=== PATIENT | male | born 1965 | race Caucasian/White ===

== ENCOUNTER → 2016-05-07 | Outpatient (CLI) | payer OTHER ==
[~2016-05-07] MED LIST: /ESCI10TA OR; ACET65TA OR; ASTAPRO; CEPH500T OR; CLIN300C OR; FLON0.05; LISI5TAB OR; Nucynta OR; OCEAN; PRED1TA OR; ROSU10TA OR; VICO5TAB OR
[2016-05-07 09:28] LABS: BASO # 0.1 K/mm3 (0.0-0.2); BASO % 0.8 % (0.0-1.0); EOS # 0.2 K/mm3 (0.0-0.50); EOS % 3.1 % (0.0-3.0); LARGE UNSTAINED CELL # 0.1 K/mm3 (0.0-0.4); LARGE UNSTAINED CELL % 1.7 % (0.0-4.0); LYMPH # 2.4 K/mm3 (1.5-4.5); LYMPH % 29.8 % (24.0-44.0); MEAN CORPUSCULAR HEMOGLOBIN 30.6 pg (27.0-33.0); MEAN CORPUSCULAR HGB CONC 34.1 g/dl (32.0-36.5); MEAN CORPUSCULAR VOLUME 89.6 fl (80.0-96.0); MONO # 0.4 K/mm3 (0.0-0.8); MONO % 5.4 % (0.0-5.0); NEUTROPHILS # 4.8 K/mm3 (1.8-7.7); NEUTROPHILS % 59.2 % (36.0-66.0); PLATELET COUNT, AUTOMATED 272 k/mm3 (150-450); RED CELL DISTRIBUTION WIDTH 12.3 % (11.5-14.5); WHITE BLOOD COUNT 8.1 K/mm3 (4.0-10.0)
[2016-05-07 10:02] LABS: ALBUMIN 3.9 GM/DL (3.2-5.2); ALKALINE PHOSPHATASE 87 U/L (45-117); ALT/SGPT 80 U/L (12-78); AST/SGOT 35 U/L (15-37); BILIRUBIN,DIRECT < 0.1 MG/DL (0.0-0.2); BILIRUBIN,TOTAL 0.4 MG/DL (0.2-1.0); TOTAL PROTEIN 6.9 GM/DL (6.4-8.2)
[2016-05-08 14:36] LABS: PSA TOTAL 11.7 ng/mL (0.0-4.0)
== END ==
LOC: M WUC 08:23
PROVIDERS: ATTEND Nurse Practitioner
DX: N40.0 Benign prostatic hyperplasia without lower urinary tract symptoms (principal)

== ENCOUNTER → 2016-07-21 | Outpatient (CLI) | payer OTHER ==
[2016-07-21 11:46] LABS: INR 0.96
[2016-07-21 12:14] LABS: HEPATITIS B SURFACE ANTIBODY NEGATIVE (POSITIVE)
--- NOTE | 2016-07-21 13:16 | REP ---
MRI LIVER WITH AND WITHOUT CONTRAST: TECHNIQUE: Multiple sequences obtained pre- and post administration of 20 mL IV gadolinium. Subcentimeter nodule is seen in the dome of the liver posteriorly in the right lobe, which is hyperintense. Similar nodule is seen in the left lobe a little more inferiorly. Another similar-appearing nodule is seen at the inferior tip of the right lobe of the liver. None of these nodules enhance, consistent with cysts. No suspicious enhancing nodule is seen in the liver. Visualized portions of spleen, adrenals, pancreas, and kidneys appear unremarkable. No adenopathy or free fluid is seen in the visualized abdomen. IMPRESSION: Three small cysts identified in the liver without suspicious mass or adenopathy. Signed by Matthew Diaz MD 07/21/2016 05:12 P
[2016-07-21 20:26] LABS: ALBUMIN 4.2 GM/DL (3.2-5.2); ALBUMIN/GLOBULIN RATIO 1.35 (1.00-1.93); ALKALINE PHOSPHATASE 97 U/L (45-117); ALT/SGPT 77 U/L (12-78); AST/SGOT 34 U/L (15-37); BILIRUBIN,DIRECT 0.1 MG/DL (0.0-0.2); BILIRUBIN,TOTAL 0.3 MG/DL (0.2-1.0); FERRITIN 410 NG/ML (26-388); GAMMA GLUTAMYLTRANSPEPTIDASE 69 U/L (15-85); IMMUNOGLOBULIN G 811 MG/DL (681-1648); IMMUNOGLOBULIN M 87.3 MG/DL (40-230); PERCENT SATURATION 38.3 % (19.7-37.4); TOTAL IRON BINDING CAPACITY 295 UG/DL (250-450); TOTAL PROTEIN 7.3 GM/DL (6.4-8.2)
[2016-07-23 14:14] LABS: ALPHA 1 ANTITRYPSIN 136 mg/dL (90-200); ENDOMYSIAL ABY IgA Negative (Negative); TISSUE TRANSGLUTAMINASE IgG <2 U/mL (0-5)
[2016-07-24 00:08] LABS: IgG SERUM (part of Subclasses) 800 mg/dL (700-1600); IgG Subclass 1 496 mg/dL (248-810); IgG Subclass 2 245 mg/dL (130-555); IgG Subclass 3 30 mg/dL (15-102); IgG Subclass 4 18 mg/dL (2-96)
== END ==
LOC: M LAB 11:05
PROVIDERS: ATTEND Internal Medicine
DX: R93.8 Abnormal findings on diagnostic imaging of other specified body structures (principal); R94.5 Abnormal results of liver function studies; F10.10 Alcohol abuse, uncomplicated; K76.89 Other specified diseases of liver

== ENCOUNTER → 2016-10-03 | Outpatient (CLI) | payer OTHER ==
[2016-10-03 09:35] LABS: BASO % 0.5 % (0.0-1.0); EOS # 0.3 K/mm3 (0.0-0.50); EOS % 3.1 % (0.0-3.0); LARGE UNSTAINED CELL # 0.2 K/mm3 (0.0-0.4); LARGE UNSTAINED CELL % 1.9 % (0.0-4.0); LYMPH # 2.4 K/mm3 (1.5-4.5); LYMPH % 27.2 % (24.0-44.0); MEAN CORPUSCULAR HEMOGLOBIN 31.4 pg (27.0-33.0); MEAN CORPUSCULAR HGB CONC 35.1 g/dl (32.0-36.5); MEAN CORPUSCULAR VOLUME 89.5 fl (80.0-96.0); MONO # 0.5 K/mm3 (0.0-0.8); MONO % 6.3 % (0.0-5.0); NEUTROPHILS % 61.1 % (36.0-66.0); PLATELET COUNT, AUTOMATED 278 k/mm3 (150-450); RED CELL DISTRIBUTION WIDTH 12.5 % (11.5-14.5); WHITE BLOOD COUNT 8.2 K/mm3 (4.0-10.0)
[2016-10-03 09:52] LABS: ALBUMIN 3.8 GM/DL (3.2-5.2); ALBUMIN/GLOBULIN RATIO 1.27 (1.00-1.93); BILIRUBIN,DIRECT 0.1 MG/DL (0.0-0.2); BILIRUBIN,TOTAL 0.5 MG/DL (0.2-1.0); TOTAL PROTEIN 6.8 GM/DL (6.4-8.2)
== END ==
LOC: M WUC 08:13
PROVIDERS: ATTEND Nurse Practitioner
DX: E29.1 Testicular hypofunction (principal)

== ENCOUNTER → 2016-10-13 | Outpatient (REF) | payer OTHER | LOC: M LAB REF 14:46 | PROVIDERS: ATTEND Physician Assistant | DX: J02.9 Acute pharyngitis, unspecified (principal) ==

== ENCOUNTER → 2017-01-27 | Outpatient (CLI) | payer OTHER | LOC: M RAD 07:34 | PROVIDERS: ATTEND Student in an Organized Health Care Education/Training Program | DX: R94.5 Abnormal results of liver function studies (principal) ==

== ENCOUNTER → 2017-01-29 | Outpatient (CLI) | payer OTHER ==
--- NOTE | 2017-01-30 07:06 | REP ---
LIVER ULTRASOUND: CLINICAL: Abnormal liver function tests. TECHNIQUE: Transabdominal ultrasound examination using curved array transducer. FINDINGS: The liver demonstrates fatty infiltration with areas of focal fatty sparing as well as a small complex 10.9 mm cyst in the right lobe. No further hepatic lesions are identified. The pancreas is incompletely evaluated due to interposed bowel gas but the visualized portions appear normal. The gallbladder is unremarkable and without gallstones, wall thickening, or pericholecystic fluid. No biliary ductal dilatation is appreciated and the common bile duct measures 1.8 mm diameter. The right kidney is normal in reniform shape without hydronephrosis and measures 11.8 x 7.5 x 5.7 cm. No ascites in the visualized right upper quadrant. IMPRESSION: 1. Fatty infiltration to the liver with areas of focal fatty sparing as well as 10.9 mm complex septated right lobe cyst. Signed by Wilfredo Bradley MD 01/31/2017 08:44 A
== END ==
LOC: M RAD 08:43
PROVIDERS: ATTEND Student in an Organized Health Care Education/Training Program
DX: R94.5 Abnormal results of liver function studies (principal); K76.0 Fatty (change of) liver, not elsewhere classified

== ENCOUNTER → 2017-02-18 | Outpatient (CLI) | payer OTHER ==
[2017-02-18 13:46] LABS: BASO # 0.1 10^3/uL (0.0-0.2); BASO % 0.9 % (0.0-1.0); EOS # 0.3 10^3/uL (0.0-0.50); EOS % 3.5 % (0.0-3.0); HEMATOCRIT 46.6 % (42.0-52.0); HEMOGLOBIN 15.8 g/dl (14.0-18.0); IMMATURE GRANULOCYTE % 0.4 % (0-0); LYMPH # 2.5 10^3/uL (1.5-4.5); LYMPH % 31.6 % (24.0-44.0); MEAN CORPUSCULAR HEMOGLOBIN 30.3 pg (27.0-33.0); MEAN CORPUSCULAR HGB CONC 33.9 g/dl (32.0-36.5); MEAN CORPUSCULAR VOLUME 89.4 fl (80.0-96.0); MONO # 0.6 10^3/uL (0.0-0.8); MONO % 7.7 % (0.0-5.0); NEUTROPHILS # 4.4 10^3/uL (1.8-7.7); NEUTROPHILS % 55.9 % (36.0-66.0); PLATELET COUNT, AUTOMATED 297 10^3/uL (150-450); RED BLOOD COUNT 5.21 10^6/uL (4.30-6.10); WHITE BLOOD COUNT 7.8 10^3/uL (4.0-10.0)
[2017-02-18 13:55] LABS: ALBUMIN/GLOBULIN RATIO 1.38 (1.00-1.93); ALKALINE PHOSPHATASE 92 U/L (45-117); ALT/SGPT 63 U/L (12-78); AST/SGOT 29 U/L (7-37); BILIRUBIN,DIRECT 0.1 MG/DL (0.0-0.2); BILIRUBIN,TOTAL 0.4 MG/DL (0.2-1.0); PROSTATIC SPECIFIC AG MONITOR 9.07 NG/ML (< 4.0); TOTAL PROTEIN 6.9 GM/DL (6.4-8.2)
[2017-02-18 14:36] LABS: TESTOSTERONE 246 NG/DL (241-827)
== END ==
LOC: M WUC 08:38
DX: N40.0 Benign prostatic hyperplasia without lower urinary tract symptoms (principal)

== ENCOUNTER → 2017-03-27 | Outpatient (CLI) | payer OTHER ==
[2017-03-27 09:54] LABS: TESTOSTERONE 241 NG/DL (241-827)
== END ==
LOC: M WUC 08:14
DX: E29.1 Testicular hypofunction (principal)
CPT/HCPCS: 84403

== ENCOUNTER → 2017-06-23 | Outpatient (CLI) | payer OTHER ==
[2017-06-23 17:14] LABS: ANION GAP 4 MEQ/L (8-16); BLOOD UREA NITROGEN 17 MG/DL (7-18); CALCIUM LEVEL 9.2 MG/DL (8.5-10.1); CARBON DIOXIDE LEVEL 30 MEQ/L (21-32); CHLORIDE LEVEL 106 MEQ/L (98-107); CREATININE FOR GFR 1.17 MG/DL (0.70-1.30); GLOMERULAR FILTRATION RATE > 60.0 (>56); GLUCOSE, FASTING 78 MG/DL (70-100); POTASSIUM SERUM 4.4 MEQ/L (3.5-5.1); SODIUM LEVEL 140 MEQ/L (136-145)
[2017-06-23 18:00] LABS: BASO # 0.1 10^3/uL (0.0-0.2); BASO % 0.6 % (0.0-1.0); EOS # 0.3 10^3/uL (0.0-0.50); EOS % 2.7 % (0.0-3.0); HEMATOCRIT 45.7 % (42.0-52.0); HEMOGLOBIN 15.7 g/dl (13.5-17.5); IMMATURE GRANULOCYTE % 0.4 % (0-3.0); LYMPH # 2.6 10^3/uL (1.5-4.5); LYMPH % 25.7 % (24.0-44.0); MEAN CORPUSCULAR HEMOGLOBIN 30.6 pg (27.0-33.0); MEAN CORPUSCULAR HGB CONC 34.4 g/dl (32.0-36.5); MEAN CORPUSCULAR VOLUME 89.1 fl (80.0-96.0); MONO # 0.8 10^3/uL (0.0-0.8); MONO % 8.1 % (0.0-5.0); NEUTROPHILS # 6.3 10^3/uL (1.8-7.7); NEUTROPHILS % 62.5 % (36.0-66.0); PLATELET COUNT, AUTOMATED 309 10^3/uL (150-450); RED BLOOD COUNT 5.13 10^6/uL (4.30-6.10); RED CELL DISTRIBUTION WIDTH 12.5 % (11.5-14.5); WHITE BLOOD COUNT 10.1 10^3/uL (4.0-10.0)
== END ==
LOC: M WUC 15:20
DX: R97.20 Elevated prostate specific antigen [PSA] (principal)
CPT/HCPCS: 80048

== ENCOUNTER 2017-09-07 10:29 | Day surgery (SDC) | payer OTHER ==
[2017-09-07] MEDS: NS 1,000 ML IV (10:45)
[2017-09-07] MEDS ORDERED: PROPOFOL 500 MG/50 ML VIAL As Ordered (12:49)
== END 2017-09-07 13:14 | disposition home or self-care (01) ==
LOC: M OPP 10:29
DX: Z12.11 Encounter for screening for malignant neoplasm of colon (principal); I10 Essential (primary) hypertension; E78.5 Hyperlipidemia, unspecified; F41.9 Anxiety disorder, unspecified; R06.83 Snoring; G47.30 Sleep apnea, unspecified; R97.20 Elevated prostate specific antigen [PSA]; Z91.048 Other nonmedicinal substance allergy status; Z79.899 Other long term (current) drug therapy; Z79.52 Long term (current) use of systemic steroids; Z87.891 Personal history of nicotine dependence
CPT/HCPCS: 45378

== ENCOUNTER → 2017-11-12 | Outpatient (CLI) | payer OTHER ==
[2017-11-12 18:25] LABS: PROSTATIC SPECIFIC AG MONITOR 1.96 NG/ML (< 4.0)
== END ==
LOC: M WUC 13:37
DX: R97.20 Elevated prostate specific antigen [PSA] (principal); N42.32 Atypical small acinar proliferation of prostate
CPT/HCPCS: 84153

== ENCOUNTER → 2018-01-28 | Outpatient (CLI) | payer OTHER ==
[~2018-01-28] MED LIST changes: +AZEL0.1S; +FISH7.5C PO; +FLON1SPR; +LOSA-4 PO; +OLIV250C PO; -ROSU10TA OR; +ROSU10TA PO; +WELL100T2 PO
--- NOTE | 2018-01-29 03:41 | REP ---
Clinical: Follow up hepatic cyst. Comparison: 01/29/2017. Technique: Real time hou scale ultrasound examination using curved array transducer. Findings: The liver demonstrates diffuse increased echotexture consistent with fatty infiltration and areas of focal fatty sparing. Septated cyst in the inferior tip of the right lobe measures 1.2 x 0.7 x 0.9 cm is essentially unchanged, and a new 4 mm cyst is also identified in the anterior right lobe. Pancreas is incompletely evaluated due to interposed bowel gas. The gallbladder and biliary system are normal. No gallstones, wall thickening, or pericholecystic fluid is appreciated. No biliary ductal dilatation identified. Common bile duct measures 3.8 mm diameter. Right kidney demonstrates renovascular calcifications and measures 12.1 x 7.3 x 5.7 cm. No hydronephrosis or obvious abnormality. No ascites. Impression: 1. Septated cyst in the inferior tip of the right hepatic lobe is essentially unchanged. New 4 mm hepatic cyst identified. 2. Fatty infiltration to the liver. Electronically Signed by Wilfredo Bradley MD 01/29/2018 03:33 A
== END ==
LOC: M RAD 07:22
PROVIDERS: ATTEND Student in an Organized Health Care Education/Training Program
DX: K76.89 Other specified diseases of liver (principal); K76.0 Fatty (change of) liver, not elsewhere classified; R94.5 Abnormal results of liver function studies

== ENCOUNTER → 2018-05-19 | Outpatient (CLI) | payer OTHER ==
[~2018-05-19] MED LIST changes: -/ESCI10TA OR; +CRES10TA32 PO; +LEXA1TAB OR; -LOSA-4 PO; +LOSA100T50 PO; -ROSU10TA PO
== END ==
LOC: M WUC 08:31
PROVIDERS: ATTEND Nurse Practitioner
DX: N42.32 Atypical small acinar proliferation of prostate (principal)

== ENCOUNTER → 2018-07-13 | Outpatient (CLI) | payer OTHER ==
[2018-07-13 13:25] LABS: BLOOD UREA NITROGEN 14 MG/DL (7-18); CREATININE FOR GFR 1.15 MG/DL (0.70-1.30); GLOMERULAR FILTRATION RATE > 60.0 (>56)
== END ==
LOC: M WUC 09:27
PROVIDERS: ATTEND Nurse Practitioner
DX: N42.32 Atypical small acinar proliferation of prostate (principal)

== ENCOUNTER → 2018-10-01 | Outpatient (CLI) | payer OTHER ==
--- NOTE | 2018-10-01 14:06 | REP ---
REASON: Back pain. COMPARISON: None. There is anterior lipping at every level. There is partial syndesmophyte formation seen bilaterally at every level, but heaviest along the right side of spine. The pedicles are intact bilaterally. There is minimal disc space narrowing seen involving the mid thoracic levels. Vertebral body height and alignment is within normal limits. IMPRESSION: Chronic changes as described above. Electronically Signed by Freddy Santoro DO 10/01/2018 02:22 P
== END ==
LOC: M WUC 11:38
PROVIDERS: ATTEND Internal Medicine
DX: M25.78 Osteophyte, vertebrae (principal)

== ENCOUNTER → 2018-12-13 | Outpatient (CLI) | payer OTHER ==
[2018-12-15 14:18] LABS: PSA TOTAL 3.2 ng/mL (0.0-4.0)
== END ==
LOC: M WUC 12:48
DX: N42.32 Atypical small acinar proliferation of prostate (principal)

== ENCOUNTER → 2019-02-11 | Outpatient (CLI) | payer OTHER ==
--- NOTE | 2019-02-11 09:07 | REP ---
Chest x-ray: Two views. History: Shortness of breath. Comparison study: September 08 1029. Findings: The lungs are symmetrically aerated and clear. The pleural angles are sharp. Cardiomediastinal silhouette is unremarkable. Pulmonary vasculature is not increased. There are degenerative disc disease changes in the thoracic spine. No acute bony abnormality is appreciated. Impression: No active disease. Electronically Signed by Doroteo Peck MD 02/11/2019 08:59 A
== END ==
LOC: M WUC 08:46
PROVIDERS: ATTEND Physician Assistant
DX: R06.02 Shortness of breath (principal)

== ENCOUNTER → 2019-02-21 | Outpatient (REF) | payer OTHER | LOC: M LAB REF 11:53 | PROVIDERS: ATTEND Physician Assistant | DX: R05 Cough (principal) ==

== ENCOUNTER → 2019-02-22 | Outpatient (CLI) | payer OTHER ==
--- NOTE | 2019-02-23 03:24 | REP ---
Clinical: Cough and shortness of breath . Comparison: 02/11/2019 . Technique: PA and lateral. Findings: The mediastinum and cardiac silhouette are normal. The lung montiel are clear and without acute consolidation, effusion, or pneumothorax. The skeletal structures are intact and normal. Impression: 1. No acute cardiopulmonary process. Electronically Signed by Wilfredo Bradley MD 02/23/2019 03:15 A
== END ==
LOC: M WUC 13:47
PROVIDERS: ATTEND Physician Assistant
DX: R05 Cough (principal); R06.02 Shortness of breath

== ENCOUNTER → 2019-05-11 | Outpatient (CLI) | payer OTHER | LOC: M WUC 11:29 | PROVIDERS: ATTEND Urology | DX: N42.32 Atypical small acinar proliferation of prostate (principal) ==

== ENCOUNTER 2019-12-09 13:34 | Emergency (ER) | payer OTHER ==
[~2019-12-09] VITALS: Ht 180.3 cm; Wt 100.0 kg
[~2019-12-09 13:34] MED LIST changes: -AZEL0.1S; +AZEL0.1S NARES; -FLON1SPR; +FLON1SPR NARES
[2019-12-09] MEDS ORDERED: NS 1,000 ML IV ONE (14:15)
[2019-12-09] MEDS ORDERED: IBUPROFEN 600MG TAB PO ONE (14:15)
[2019-12-09] MEDS ORDERED: ALBUTEROL 90 MCG/ACT 8GM HFA INHALER INH ONE (14:30)
[2019-12-09 14:47] LABS: VENOUS BASE EXCESS 1.8 (-2.0-2.0); VENOUS HCO3 29.6 MEQ/L (23.0-27.0); VENOUS O2 SATURATION 59.4 % (60.0-80.0); VENOUS PARTIAL PRESSURE CO2 58.4 mmHg (38.0-50.0); VENOUS PARTIAL PRESSURE O2 32.4 mmHg (30.0-50.0); VENOUS PH 7.323 UNITS (7.330-7.430); VENOUS TOTAL CO2 31.4 MEQ/L (24.0-28.0)
[2019-12-09 14:53] LABS: HEMATOCRIT 47.5 % (42.0-52.0); HEMOGLOBIN 15.6 g/dl (13.5-17.5); MEAN CORPUSCULAR HEMOGLOBIN 29.9 pg (27.0-33.0); MEAN CORPUSCULAR HGB CONC 32.8 g/dl (32.0-36.5); MEAN CORPUSCULAR VOLUME 91.2 fl (80.0-96.0); PLATELET COUNT, AUTOMATED 208 10^3/uL (150-450); RED BLOOD COUNT 5.21 10^6/uL (4.30-6.10); WHITE BLOOD COUNT 5.8 10^3/uL (4.0-10.0)
--- NOTE | 2019-12-09 15:04 | REP ---
INDICATION: sob covid +. COMPARISON: Comparison chest x-ray 22 February 2019.. TECHNIQUE: Portable sitting AP view. FINDINGS: There is a new peripheral infiltrate in the left inferior lung zone. Lung montiel are otherwise clear. Pleural angles are sharp. Heart size is normal. Pulmonary vasculature is not increased. No bony abnormality is seen. IMPRESSION: Peripheral infiltrate in the left lung base laterally. Consistent with pneumonia. Otherwise negative chest x-ray. <Electronically signed by Kyree Peck > 12/09/19 1500
[2019-12-09 15:15] LABS: BLOOD UREA NITROGEN 15 MG/DL (7-18); CALCIUM LEVEL 8.7 MG/DL (8.5-10.1); CARBON DIOXIDE LEVEL 31 MEQ/L (21-32); CHLORIDE LEVEL 105 MEQ/L (98-107); CREATININE FOR GFR 1.23 MG/DL (0.70-1.30); GLOMERULAR FILTRATION RATE > 60.0 (>56); GLUCOSE, FASTING 79 MG/DL (70-100); POTASSIUM SERUM 4.5 MEQ/L (3.5-5.1); SODIUM LEVEL 140 MEQ/L (136-145)
[2019-12-09] MEDS ORDERED: PROAAER10 INH (15:37)
[2019-12-09 16:19] VITALS: BP 148/79
--- NOTE | 2019-12-09 18:21 | ED PDOC ---
Post-Departure Follow-Up cxr faxed to dr nicolasa titus for fu Vanessa Jim MD Dec 09, 2019 18:21
== END 2019-12-09 16:23 | disposition home or self-care (01) ==
LOC: M ED 13:34
DX: U07.1 COVID-19 (principal); R91.8 Other nonspecific abnormal finding of lung field; I10 Essential (primary) hypertension; E78.5 Hyperlipidemia, unspecified; Z79.899 Other long term (current) drug therapy

== ENCOUNTER 2019-12-17 12:03 | Observation (INO) | payer OTHER ==
[~2019-12-17] VITALS: Ht 180.3 cm; Wt 98.0 kg
[~2019-12-17 12:03] MED LIST changes: +PROAAER10 INH
[2019-12-17 13:24] LABS: BASO % 0.3 % (0.0-1.0); EOS # 0.1 10^3/uL (0.0-0.5); HEMATOCRIT 45.2 % (42.0-52.0); HEMOGLOBIN 14.5 g/dl (13.5-17.5); LYMPH # 1.2 10^3/uL (1.5-5.0); LYMPH % 12.9 % (24.0-44.0); MEAN CORPUSCULAR HGB CONC 32.1 g/dl (32.0-36.5); MEAN CORPUSCULAR VOLUME 90.4 fl (80.0-96.0); MONO # 0.7 10^3/uL (0.0-0.8); MONO % 8.3 % (0.0-5.0); NEUTROPHILS # 6.9 10^3/uL (1.5-8.5); NEUTROPHILS % 77.2 % (36.0-66.0); PLATELET COUNT, AUTOMATED 256 10^3/uL (150-450); WHITE BLOOD COUNT 8.9 10^3/uL (4.0-10.0)
[2019-12-17 13:41] LABS: INR 1.07; PROTHROMBIN TIME 14.1 SECONDS (12.5-14.3)
[2019-12-17 13:42] LABS: PARTIAL THROMBOPLASTIN TIME 31.3 SECONDS (24.2-38.5)
[2019-12-17 13:44] LABS: D-DIMER QUANT 1118.04 ng/ml (<500)
[2019-12-17] MEDS ORDERED: ACETAMINOPHEN 325 MG TAB PO ONE (13:45)
[2019-12-17 13:46] LABS: ALT/SGPT 33 U/L (12-78); BLOOD UREA NITROGEN 14 MG/DL (7-18); CALCIUM LEVEL 8.8 MG/DL (8.5-10.1); CARBON DIOXIDE LEVEL 28 MEQ/L (21-32); CHLORIDE LEVEL 105 MEQ/L (98-107); CREATININE FOR GFR 0.95 MG/DL (0.70-1.30); GLOMERULAR FILTRATION RATE > 60.0 (>56); GLUCOSE, FASTING 76 MG/DL (70-100); LDH LACTATE DEHYDROGENASE 347 U/L (87-241); POTASSIUM SERUM 4.4 MEQ/L (3.5-5.1); SODIUM LEVEL 138 MEQ/L (136-145)
[2019-12-17 13:47] LABS: ALBUMIN 3.2 GM/DL (3.2-5.2); BILIRUBIN,TOTAL 0.8 MG/DL (0.2-1.0); CK-MB VALUE MASS < 1.0 NG/ML (<3.6); CPK CREATINE PHOSPHOKINASE 160 U/L (39-308); FERRITIN 1122 NG/ML (26-388); MB/CK RELATIVE INDEX 0.62 (< OR =4); TOTAL PROTEIN 6.5 GM/DL (6.4-8.2); TROPONIN I < 0.02 NG/ML (< 0.10)
--- NOTE | 2019-12-17 14:38 | REP ---
INDICATION: Coronavirus workup. COMPARISON: 12/09/2019 TECHNIQUE: AP portable chest: FINDINGS: Today's study shows new peripheral infiltrates in the right lateral base and patchy peripheral infiltrates in the left lower lobe which have increased. No definite effusion. The mid and upper lung zones remain clear. The heart, mediastinal and hilar contours are normal. The airway intact and bones unremarkable. IMPRESSION: 1. Increasing patchy left base infiltrates and new peripheral consolidation in the right lateral base compared to 12/09/2019. Picture could certainly represent COVID pneumonia in this patient with a positive COVID test. Other pneumonias would have to be considered. No gross effusion or other finding. <Electronically signed by Nik Aleman > 12/17/19 [id number]
[2019-12-17] MEDS ORDERED: ROSU5TAB5 PO (15:19)
[2019-12-17] MEDS ORDERED: ALBU8.5H INH (15:40)
[2019-12-17] MEDS ORDERED: ACE65ERTAB PO (15:40)
[2019-12-17] MEDS ORDERED: AZELASTINE 137MCG NASAL SPY 30 ML (ASTELIN) PRN (16:00)
[2019-12-17] MEDS ORDERED: ALBUTEROL 90 MCG/ACT 8GM HFA INHALER INH PRN (16:00)
[2019-12-17] MEDS ORDERED: FLUTICASONE PROP 0.05% NASAL SPRAY 16 GM (FLONASE) NARES PRN (16:00)
[2019-12-17] MEDS ORDERED: BUPR-69 PO (16:19)
--- NOTE | 2019-12-17 16:35 | HPEPDOC ---
[facility] Medical History & Physical Date of Admission Dec 17, 2019 Date of Service: Dec 17, 2019 Attending Physician: EBONY AGUIRRE MD History and Physical CHIEF COMPLAINT: Shortness of breath HISTORY OF PRESENT ILLNESS: Patient is a 54 year old male who recently tested positive for COVID-19 pneumonia on 12/05/2019 who presented to the [facility] ER with complaint of worsening shortness of breath. He states that approximately 2 weeks ago he had developed a headache and cough. This progressed to worsening shortness of breath which lead him to be tested for COVID-19. Once he tested positive he was placed on quarantine at home. Patient states that he thought he was doing well but developed a worsening cough and presented to the [facility] ER on 12/09/2019. He was evaluated at the time and chest x-ray demonstrated a small left lung infiltrate but the patient was otherwise vitally stable and not hypoxic. He was discharged home from the ED. Today the patient states that he has had worsening shortness of breath and chest tightness. He states that he has some pain when coughing. He denies any chest pressure. He does admit to fever and decreased oral intake. In the ED the patient was found to be vitally stable. He was noted to be hypoxic with oxygen saturations of 90-94%. His labs did not demonstrate a leukocytosis. He did have elevation in his inflammatory markers consistent with his history of COVID-19 infection. Hospitalist service was consulted and the patient was admitted for further evaluation and management PAST MEDICAL HISTORY: 1. COVID-19 positive on 12/05/2019 2. Hypertension 3. Hyperlipidemia 4. Anxiety 5. Seasonal Allergies PAST SURGICAL HISTORY: 1. Vasectomy 2. Sinus surgery x2 3. Lasik SOCIAL HISTORY: Patient lives at home with his and kids. He denies any recent travel and has been quarantined at home. He is a former smoker and quit years ago. He drinks alcohol socially. Denies IV or illicit drug use FAMILY HISTORY: Reviewed and noncontributory ALLERGIES: Please see below. REVIEW OF SYSTEMS: CONSTITUTIONAL: Admits to fevers, chills, night-sweats and weight-loss HEENT: Admits to cough, headache. Denies difficulty swallowing or pain on swallowing CARDIOVASCULAR: Denies chest pain, pressure or palpitations RESPIRATORY: Admits to shortness of breath and chest tightness. Admits to cough. Denies sputum production GASTROINTESTINAL: Admits to diarrhea. Denies abdominal pain. GENITOURINARY: Denies dysuria, increased frequency or urgency SKIN: Denies rashes or lesions MUSCULOSKELETAL: Admits to weakness NEUROLOGICAL: Denies changes in speech or gait PSYCHIATRIC: Admits to anxiety. Denies depression ENDOCRINE: Denies heat intolerance or cold intolerance. Denies diabetes HEMATOLOGIC/LYMPHATIC: Denies easy bruising or bleeding. Denies history of DVT or PE HOME MEDICATIONS: Please see below. PHYSICAL EXAMINATION: VITAL SIGNS: Temperature 98.7, pulse 80, respiratory rate 17, blood pressure 128/68, pulse oximetry 96% on 1L GENERAL APPEARANCE: Patient is awake, alert, and oriented. He is lying in stretcher comfortably. He does not appear to be in any acute distress HEENT: Atraumatic. Normocephalic. Eyes are nonicteric. Trachea is midline CARDIOVASCULAR: Normal S1, S2. Regular rate and rhythm. No clicks rubs or murmurs LUNGS: Slightly diminished breath sounds throughout. Crackles in the left lower lung field. Symmetric chest expansion. No wheezes or rhonchi ABDOMEN: Soft, nondistended. Nontender. Normoactive bowel sounds EXTREMITIES: No edema. No calf tenderness or discoloration. Full and equal pulses in bilateral upper and lower extremities NEUROLOGICAL: No focal neurological deficits PSYCHIATRIC: Mood and affect appear appropriate for situation LABORATORY DATA: See below. IMAGING: INDICATION: Coronavirus workup. COMPARISON: 12/09/2019 TECHNIQUE: AP portable chest: FINDINGS: Today's study shows new peripheral infiltrates in the right lateral base and patchy peripheral infiltrates in the left lower lobe which have increased. No definite effusion. The mid and upper lung zones remain clear. The heart, mediastinal and hilar contours are normal. The airway intact and bones unremarkable. IMPRESSION: 1. Increasing patchy left base infiltrates and new peripheral consolidation in the right lateral base compared to 12/09/2019. Picture could certainly represent COVID pneumonia in this patient with a positive COVID test. Other pneumonias would have to be considered. No gross effusion or other finding. <Electronically signed by Nik Aleman > 12/17/19 3161 MICROBIOLOGY: Please see below. ASSESSMENT: Patient is a 54 year old male with Positive COVID-19 on 12/05/2019 who has developed worsening shortness of breath and hypoxia over the past two weeks. Patient found to be mildly hypoxic in the ER and admitted for observation . PLAN: 1. Shortness of breath 2/2 likely COVID-19 pneumonia vs bacterial pna -Patient is COVID-19 positive since 12/05/2019. He had presented to [facility] ER on 12/08 and received a chest x-ray demonstrating a left infiltrate. Today chest x- ray demonstrates increasing patchy left base infiltrate with new peripheral consolidation in the right lateral base. Findings are likely secondary to a viral pneumonia such as COVID-19 given that he does not have a leukocytosis but decreased lymphocytes. He is febrile. -Will start on empiric Rocephin and Doxy for CAP. -Procalcitonin pending. If negative will D/C antibiotics -Continue with supplemental oxygen -Incentive spirometry -Albuterol HFA prn -D-dimer was elevated; -He is not tachycardic / Saturations at the lowest have been 93% on room air -PE could be on differential however his chest x-ray provides reasoning for his hypoxia -D-dimers could be elevated 2/2 COVID -Will hold off on CTA for now -Patient will be started on 50 mg Lovenox BID 2. COVID-19 -Patient has positive COVID-19. Likely has developed pneumonia. Inflammatory markers are elevated consistent with COVID-19 -Continue with isolation precautions -Likely discharge home with oxygen in AM 3. Hypertension -Continue patients home Losartan 4. Hyperlipidemia -Continue Rosuvastatin -Continue Fish oil 5. Allergies -Continue Flonase -Continue Azelastine 6. Anxiety -Continue Wellbutrin 7. DVT Prophylaxis -Lovenox 0.5mg/kg dosing BID Disposition: - Likely discharge home in AM with oxygen pending clinical improvement Vital Signs Vital Signs Date Time Temp Pulse Resp B/P (MAP) Pulse Ox O2 Delivery O2 Flow Rate FiO2 12/17/19 14:00 90 18 159/85 (109) 93 Nasal Cannula 1.0 12/17/19 12:45 100.2 Laboratory Data Labs 24H Laboratory Tests 2 12/17/19 13:03: Immature Granulocyte % (Auto) 0.3, Neutrophils (%) (Auto) 77.2H, Lymphocytes (%) (Auto) 12.9L, Monocytes (%) (Auto) 8.3H, Eosinophils (%) (Auto) 1.0, Basophils (%) (Auto) 0.3, Neutrophils # (Auto) 6.9, Lymphocytes # (Auto) 1.2L, Monocytes # (Auto) 0.7, Eosinophils # (Auto) 0.1, Basophils # (Auto) 0.0, Nucleated Red Blood Cells % (auto) 0.0, Prothrombin Time 14.1H, Prothromb Time International Ratio 1.07, Activated Partial Thromboplast Time 31.3, D-Dimer, Quantitative 1118.04H, Anion Gap 5L, Glomerular Filtration Rate > 60.0, Lactic Acid Level 1.2, Calcium Level 8.8, Ferritin 1122H, Total Bilirubin 0.8, Aspartate Amino Transf (AST/SGOT) 24, Alanine Aminotransferase (ALT/SGPT) 33, Alkaline Phosphatase 76, Lactate Dehydrogenase 347H, Total Creatine Kinase 160, Creatine Kinase MB < 1.0, Creatine Kinase MB Relative Index 0.62, Troponin I < 0.02, C- Reactive Protein, Quantitative 13.30H, Total Protein 6.5, Albumin 3.2, Albumin/Globulin Ratio 1.0 CBC/BMP Laboratory Tests 12/17/19 13:03 Microbiology Microbiology 12/17/19 Blood Culture, Received Pending 12/17/19 Blood Culture, Received Pending Home Medications Scheduled Bupropion HCl (Bupropion HCl) 100 Mg Tablet, 100 MG PO DAILY Losartan Potassium (Losartan Potassium) 100 Mg Tab, 100 MG PO DAILY [place] Extract ([place] Extract) 250 Mg Cap, 750 MG PO DAILY [place]-3/Dha/Epa/Fish Oil (Fish Oil EC 1,000 mg Softgel) 1 Cap Cap, 1 CAP PO DAILY Rosuvastatin Calcium (Rosuvastatin Calcium) 5 Mg Tablet, 5 MG PO DAILY Scheduled PRN Acetaminophen (Acetaminophen ER) 650 Mg Tablet.er, 650 MG PO Q8H PRN for PAIN / FEVER Albuterol Sulfate (Albuterol Sulfate Hfa) 8.5 Gm Hfa.aer.ad, 2 PUFFS INH Q4H PRN for SOB/WHEEZING Azelastine HCl (Azelastine HCl) 0.1 % Spr, 1 SPRAY NARES DAILY PRN for RUNNY NOSE Fluticasone Propionate (Flonase Allergy Relief) 50 Mcg/Act Spr, 2 SPRAY NARES DAILY PRN for CONGESTION Allergies Coded Allergies: TAPE (Verified Allergy, Unknown, 08/31/17) A-FIB/CHADSVASC A-FIB History Current/History of A-Fib/PAF?: No GME ATTESTATION GME ATTESTATION My faculty preceptor for this patient encounter was physically present during the encounter and was fully available. All aspects of the patient interview, e xamination, medical decision making process, and medical care plan development were reviewed and approved by the faculty preceptor. The faculty preceptor is aware and concurs with the plan as stated in the body of this note and will attest to such by his/her cosignature. ATTENDING NOTE I, Ebony Aguirre, have independently examined this patient and performed my own physical exam, as well as reviewed the documentation and edited where necessary. I have discussed in detail with the resident / student the findings and plan of treatment as documented by the resident / student and edited their note. I agree with their findings and treatment plan and have edited their documentation. I will continue to follow the patient during this hospital stay. SONIDO IVAN DO Dec 17, 2019 16:35 EBONY AGUIRRE MD Dec 17, 2019 17:07
--- NOTE | 2019-12-17 17:06 | ECGEPIP ---
[facility] - ED Test Date: 2019-12-17 Pat Name: RIA ALVAREZ Department: Room: [place] [address] Gender: Male Morgue Technician: venu : 1965 Requested By: NÉSTOR DRISCOLL Order Number: [id number] Reading MD: Yumiko Lira Measurements Intervals [place] Rate: 91 P: 59 NH: 160 QRS: 7 QRSD: 82 T: 43 QT: 338 QTc: 416 Interpretive Statements SINUS RHYTHM NONSPECIFIC T-WAVE ABNORMALITY NO PRIOR Electronically Signed on 12-17-2019 17:06:34 EST by Yumiko Lira
[2019-12-17] MEDS: NS 1,000 ML IV SCH (17:44)
[2019-12-17] MEDS: cefTRIAXone SOD 2 GM in D5W MINI-BAG PLUS 50 ML IV SCH (17:44)
[2019-12-17] MEDS: DOXYCYCLINE HYCLATE 100 MG in D5W MINI-BAG PLUS 100 ML IV SCH (18:00)
[2019-12-17 20:00] VITALS: O2SAT 96
[2019-12-17 20:30] VITALS: BP 140/82
[2019-12-17 21:00] VITALS: O2SAT 96
[2019-12-17] MEDS: ENOXAPARIN 60MG/0.6ML SYRINGE (J1650 PER 10MG) SC SCH (21:08)
[2019-12-17] MEDS: ACETAMINOPHEN TAB 650MG DOSE (2X325MG) PO PRN (21:09)
[2019-12-17 22:00] VITALS: O2SAT 95
[2019-12-17 23:00] VITALS: O2SAT 95
[2019-12-18] VITALS (22 sets, daily range): BP systolic 125–151; BP diastolic 70–86; O2SAT 93–99
[2019-12-18] MEDS: DOXYCYCLINE HYCLATE 100 MG in D5W MINI-BAG PLUS 100 ML IV SCH (06:06)
[2019-12-18] MEDS: ACETAMINOPHEN TAB 650MG DOSE (2X325MG) PO PRN ×3 (06:16→20:28)
[2019-12-18 07:37] LABS: HEMATOCRIT 41.6 % (42.0-52.0); HEMOGLOBIN 13.3 g/dl (13.5-17.5); MEAN CORPUSCULAR HEMOGLOBIN 29.5 pg (27.0-33.0); MEAN CORPUSCULAR VOLUME 92.2 fl (80.0-96.0); PLATELET COUNT, AUTOMATED 265 10^3/uL (150-450); RED BLOOD COUNT 4.51 10^6/uL (4.30-6.10); WHITE BLOOD COUNT 7.6 10^3/uL (4.0-10.0)
[2019-12-18 08:04] LABS: ALBUMIN 2.8 GM/DL (3.2-5.2); ALT/SGPT 30 U/L (12-78); BILIRUBIN,TOTAL 0.6 MG/DL (0.2-1.0); BLOOD UREA NITROGEN 16 MG/DL (7-18); CALCIUM LEVEL 8.1 MG/DL (8.5-10.1); CARBON DIOXIDE LEVEL 28 MEQ/L (21-32); CHLORIDE LEVEL 107 MEQ/L (98-107); CREATININE FOR GFR 0.98 MG/DL (0.70-1.30); FERRITIN 1184 NG/ML (26-388); GLOMERULAR FILTRATION RATE > 60.0 (>56); GLUCOSE, FASTING 95 MG/DL (70-100); MAGNESIUM LEVEL 1.7 MG/DL (1.8-2.4); POTASSIUM SERUM 4.3 MEQ/L (3.5-5.1); SODIUM LEVEL 139 MEQ/L (136-145)
[2019-12-18] MEDS: NS 1,000 ML IV SCH ×2 (08:54→16:34)
[2019-12-18] MEDS: ROSUVASTATIN 10 MG TAB (CRESTOR) PO SCH (08:56)
[2019-12-18] MEDS: buPROPion 100 MG TAB PO SCH (08:56)
[2019-12-18] MEDS: OMEGA-3 1000MG CAPSULE PO SCH (08:56)
[2019-12-18] MEDS: ENOXAPARIN 60MG/0.6ML SYRINGE (J1650 PER 10MG) SC SCH ×2 (08:57→20:28)
[2019-12-18] MEDS: LOSARTAN 50MG TABLET PO SCH (08:58)
[2019-12-18] MEDS ORDERED: ENOXAPARIN 40MG/0.4ML SYRINGE (J1650 PER 10MG) SC SCH (09:00)
[2019-12-18] MEDS ORDERED: MAG SULF 1GM/100ML (MAG RUN) 1 GM in IV 1 EA IV ONE (10:00)
--- NOTE | 2019-12-18 14:18 | IPNPDOC ---
Text Note Date of Service The patient was seen on 12/18/19. NOTE Subjective: Patient is a 54-year-old male with a PMHx of HTN, DLP, Anxiety, HAVEN on CPAP, Seasonal allergies, and a recent diagnosis of COVID-19 on 12/04 who presented to the ER with complaints of shortness of breath. Patient reports that since his positive diagnosis he has been quarantining at home Patient had tested for COVID-19 after he had experienced headache and cough while at home. He had visited the ER on 12/08; his CXR had revealed a small L infiltrate and discharge from the ER. On arrival to ED 12/16, he was hemodynamically stable and was thought to be hypoxic by the ED with saturations of 90-94% and hospitalist service was called for further evaluation. Patient was seen and examined at the bedside. Patient is currently off of oxygen and saturating 96% on room air. He still reports a significant cough. Denies any chest pain or palpitations. Reports a mild headache. Denies nausea, vomiting, abdominal pain, has not experience a bowel movement. Denies any urinary discomfort. Objective: Vitals (See below) General: Lying in bed, appears to be comfortable, AAOx3 HEENT: NC, AT CVS: RRR, +S1S2 Lungs: Fair air entry b/l, no wheezing / rhonchi / rales noted this afternoon Abdomen: Soft, non-distended, non-tender Extremities: No evidence of edema, - Calf tenderness Assessment and plan: SOB - likely 2/2 COVID-19 pneumonia; less likely 2/2 bacterial pneumonia - Presented to the ER with SOB and cough - Febrile episodes noted - Was reported to be hypoxic by the ER; currently at 96% on room air; - Off of supplemental oxygen and saturating well - saturations continue to be maintained with ambulation - Inflammatory markers remain elevated - CXR 12/16: 1. Increasing patchy left base infiltrates and new peripheral consolidation in the right lateral base compared to 12/09/2019. Picture could certainly represent COVID pneumonia in this patient with a positive COVID test. Other pneumonias would have to be considered. No gross effusion or other finding. - c/w Ceftriaxone and Doxy; will discontinue if procalcitonin is negative - c/w inhaled therapy as orderd Elevated D-dimer - less likely 2/2 PE, more likely 2/2 COVID-19 infection - Patient currently is not tachycardic - Patient is no longer hypoxic Hypertension - BP well controlled - c/w Losartan DLP - c/w Rosuvastatin and Fish oil Seasonal allergies - c/w Flonase Anxiety - c/w Bupropion DVT Prophylaxis - c/w weight based Lovenox Disposition: - Discussed with patient about plan of care - c/w Incentive spirometry - Will DC tomorrow AM VS,Fishbone, I+O VS, Fishbone, I+O Laboratory Tests 12/18/19 07:08 Vital Signs Date Time Temp Pulse Resp B/P (MAP) Pulse Ox O2 Delivery O2 Flow Rate FiO2 12/18/19 13:05 99.5 87 20 125/70 (88) 96 Room Air 12/18/19 10:00 1.0 I&O- Last 24 Hours up to 6 AM 12/18/19 06:00 Intake Total 980 ml Balance 980 ml JEAN PIERRE AGUIRRE MD Dec 18, 2019 14:18
[2019-12-18] MEDS: cefTRIAXone SOD 2 GM in D5W MINI-BAG PLUS 50 ML IV SCH (16:33)
[2019-12-18] MEDS: DOXYCYCLINE HYCLATE 100MG TABLET PO SCH (18:04)
[2019-12-19 04:22] VITALS: BP 131/69
[2019-12-19] MEDS: DOXYCYCLINE HYCLATE 100MG TABLET PO SCH (06:34)
[2019-12-19] MEDS: ACETAMINOPHEN TAB 650MG DOSE (2X325MG) PO PRN (06:34)
[2019-12-19] MEDS: NS 1,000 ML IV SCH (06:34)
[2019-12-19] MEDS: ROSUVASTATIN 10 MG TAB (CRESTOR) PO SCH (07:45)
[2019-12-19 07:48] VITALS: BP 144/95
[2019-12-19] MEDS: LOSARTAN 50MG TABLET PO SCH (07:48)
[2019-12-19] MEDS: buPROPion 100 MG TAB PO SCH (07:48)
[2019-12-19] MEDS: ENOXAPARIN 60MG/0.6ML SYRINGE (J1650 PER 10MG) SC SCH (07:48)
[2019-12-19] MEDS: OMEGA-3 1000MG CAPSULE PO SCH (07:48)
[2019-12-19 08:54] VITALS: O2SAT 95
[2019-12-19 09:48] LABS: HEMATOCRIT 39.2 % (42.0-52.0); MEAN CORPUSCULAR HGB CONC 33.2 g/dl (32.0-36.5); MEAN CORPUSCULAR VOLUME 90.3 fl (80.0-96.0); PLATELET COUNT, AUTOMATED 309 10^3/uL (150-450); RED BLOOD COUNT 4.34 10^6/uL (4.30-6.10); WHITE BLOOD COUNT 7.5 10^3/uL (4.0-10.0)
[2019-12-19 11:42] LABS: ALBUMIN 2.6 GM/DL (3.2-5.2); ALT/SGPT 24 U/L (12-78); BILIRUBIN,TOTAL 0.5 MG/DL (0.2-1.0); BLOOD UREA NITROGEN 14 MG/DL (7-18); CALCIUM LEVEL 8.3 MG/DL (8.5-10.1); CARBON DIOXIDE LEVEL 26 MEQ/L (21-32); CHLORIDE LEVEL 110 MEQ/L (98-107); CREATININE FOR GFR 0.79 MG/DL (0.70-1.30); FERRITIN 1106 NG/ML (26-388); GLOMERULAR FILTRATION RATE > 60.0 (>56); GLUCOSE, FASTING 121 MG/DL (70-100); POTASSIUM SERUM 4.1 MEQ/L (3.5-5.1); SODIUM LEVEL 140 MEQ/L (136-145); TOTAL PROTEIN 5.6 GM/DL (6.4-8.2)
--- NOTE | 2019-12-19 12:51 | DS.PDOC ---
Discharge Summary General Date of Admission Dec 17, 2019 at 12:04 Date of Discharge 12/19/2019 Discharge Summary PROCEDURES PERFORMED DURING STAY: [None]. ADMITTING DIAGNOSES / DISCHARGE DIAGNOSES: SOB - likely 2/2 COVID-19 pneumonia; less likely 2/2 bacterial pneumonia Elevated D-dimer - less likely 2/2 PE, more likely 2/2 COVID-19 infection Hypertension DLP Seasonal allergies Anxiety DVT Prophylaxis COMPLICATIONS/CHIEF COMPLAINT: Cough / SOB HISTORY OF PRESENT ILLNESS: Patient is a 54-year-old male with a PMHx of HTN, DLP, Anxiety, HAVEN on CPAP, Seasonal allergies, and a recent diagnosis of COVID-19 on 12/04 who presented to the ER with complaints of shortness of breath. Patient reports that since his positive diagnosis he has been quarantining at home Patient had tested for COVID-19 after he had experienced headache and cough while at home. He had visited the ER on 12/08; his CXR had revealed a small L infiltrate and discharge from the ER. On arrival to ED 12/16, he was hemodynamically stable and was thought to be hypoxic by the ED with saturations of 90-94% and hospitalist service was called for further evaluation. HOSPITAL COURSE: SOB - likely 2/2 COVID-19 pneumonia; less likely 2/2 bacterial pneumonia - Presented to the ER with SOB and cough; reports cough persists - but overall he feels better - Continues to saturate well on room air - currently at 96% - Off of supplemental oxygen and saturating well - maintains saturation with ambulation - Inflammatory markers have trended down - CXR 12/16: 1. Increasing patchy left base infiltrates and new peripheral consolidation in the right lateral base compared to 12/09/2019. Picture could certainly represent COVID pneumonia in this patient with a positive COVID test. Other pneumonias would have to be considered. No gross effusion or other finding. - Will DC Ceftriaxone and Doxycycline - Procalcitonin negative - c/w inhaled therapy as ordered - Will have outpatient follow up with PCP within 7 days (telemedicine) - Will continue with quarantine - advised to follow up with [facility] Elevated D-dimer - less likely 2/2 PE, more likely 2/2 COVID-19 infection - Patient currently is not tachycardic - Patient is no longer hypoxic Hypertension - BP well controlled - c/w Losartan DLP - c/w Rosuvastatin and Fish oil Seasonal allergies - c/w Flonase Anxiety - c/w Bupropion DVT Prophylaxis - c/w weight based Lovenox DISCHARGE MEDICATIONS: Please see below. ALLERGIES: Please see below. PHYSICAL EXAMINATION ON DISCHARGE: Vitals (See below) General: Lying in bed, in no acute distress and appears comfortable, AAOx3 HEENT: NC, AT CVS: +S1S2 Lungs: Air entry appears to be fair bilaterally without any evidence of rhonchi, crackles or wheezing Abdomen: Soft, remains nondistended, nontender Extremities: Lower extremities are without any edema, - Calf tenderness LABORATORY DATA: Please see below. ACTIVITY: [As tolerated]. DISPOSITION: Home under quarantine DISCHARGE CONDITION: [Stable]. TIME SPENT ON DISCHARGE: 25 minutes. Vital Signs/I&Os Vital Signs Date Time Temp Pulse Resp B/P (MAP) Pulse Ox O2 Delivery O2 Flow Rate FiO2 12/19/19 08:54 95 Room Air 12/19/19 07:48 144/95 12/19/19 06:47 98.7 12/19/19 04:22 90 20 12/18/19 10:00 1.0 I&O- Last 24 Hours up to 6 AM 12/19/19 06:00 Intake Total 1420 ml Output Total 1500 ml Balance -80 ml Laboratory Data Labs 24H Laboratory Tests 2 12/19/19 09:30: Nucleated Red Blood Cells % (auto) 0.0, Anion Gap 4L, Glomerular Filtration Rate > 60.0, Calcium Level 8.3L, Ferritin 1106H, Total Bilirubin 0.5, Aspartate Amino Transf (AST/SGOT) 22, Alanine Aminotransferase (ALT/SGPT) 24, Alkaline Phosphatase 61, C-Reactive Protein, Quantitative 14.80H, Total Protein 5.6L, Albumin 2.6L, Albumin/Globulin Ratio 0.9 CBC/BMP Laboratory Tests 12/19/19 09:30 Microbiology Microbiology 12/17/19 Blood Culture - Preliminary, Resulted No growth after 24 hours . All specim... 12/17/19 Blood Culture - Preliminary, Resulted No growth after 24 hours . All specim... Discharge Medications Scheduled Bupropion HCl (Bupropion HCl) 100 Mg Tablet, 100 MG PO DAILY, (Reported) Losartan Potassium (Losartan Potassium) 100 Mg Tab, 100 MG PO DAILY, (Reported) [place] U[place] Extract ([place] Upham Extract) 250 Mg Cap, 750 MG PO DAILY, (Reported) [place]-3/Dha/Epa/Fish Oil (Fish Oil EC 1,000 mg Softgel) 1 Cap Cap, 1 CAP PO DAILY, (Reported) Rosuvastatin Calcium (Rosuvastatin Calcium) 5 Mg Tablet, 5 MG PO DAILY, (R eported) Scheduled PRN Acetaminophen (Acetaminophen ER) 650 Mg Tablet.er, 650 MG PO Q8H PRN for PAIN / FEVER, (Reported) Albuterol Sulfate (Albuterol Sulfate Hfa) 8.5 Gm Hfa.aer.ad, 2 PUFFS INH Q4H PRN for SOB/WHEEZING, (Reported) Azelastine HCl (Azelastine HCl) 0.1 % Spr, 1 SPRAY NARES DAILY PRN for RUNNY NOSE, (Reported) Fluticasone Propionate (Flonase Allergy Relief) 50 Mcg/Act Spr, 2 SPRAY NARES DAILY PRN for CONGESTION, (Reported) Allergies Coded Allergies: TAPE (Verified Allergy, Unknown, 08/31/17) JEAN PIERRE AGUIRRE MD Dec 19, 2019 12:51
== END 2019-12-19 13:05 | disposition home or self-care (01) ==
LOC: M ED 12:03 → M ED INP 12:04 → M 4MAIN 20:20
PROVIDERS: ADMIT Internal Medicine; ATTEND Internal Medicine
DX: U07.1 COVID-19 (principal); J18.9 Pneumonia, unspecified organism; R79.1 Abnormal coagulation profile; I10 Essential (primary) hypertension; E78.49 Other hyperlipidemia; G47.33 Obstructive sleep apnea (adult) (pediatric); F41.9 Anxiety disorder, unspecified; Z79.899 Other long term (current) drug therapy
CPT/HCPCS: 36415; 71045; 80053; 82550; 82553; 82728; 83605; 83615; 83735; 84145; 84484; 85025; 85027; 85379; 85610; 85730; 86140; 87040; 93005; 94640; 96361; 96365; 96366; 96372; 99285; J0696; J1650; J3475

== ENCOUNTER → 2020-01-27 | Outpatient (CLI) | payer OTHER ==
[~2020-01-27] MED LIST changes: +ACE65ERTAB PO; +ALBU8.5H INH; +BUPR-69 PO; +ROSU5TAB5 PO
[2020-01-27 10:02] LABS: ALBUMIN 3.8 GM/DL (3.2-5.2); ALT/SGPT 88 U/L (12-78); BILIRUBIN,TOTAL 0.4 MG/DL (0.2-1.0); BLOOD UREA NITROGEN 17 MG/DL (7-18); CALCIUM LEVEL 9.2 MG/DL (8.5-10.1); CARBON DIOXIDE LEVEL 27 MEQ/L (21-32); CHLORIDE LEVEL 107 MEQ/L (98-107); CHOLESTEROL LEVEL 182 MG/DL (<200); CHOLESTEROL RISK RATIO 4.333 (<5); CREATININE FOR GFR 1.12 MG/DL (0.70-1.30); GLOMERULAR FILTRATION RATE > 60.0 (>56); GLUCOSE, FASTING 96 MG/DL (70-100); HDL CHOLESTEROL 42 MG/DL (>40); LDL CHOLESTEROL 117 MG/DL (<100); NON-HDL-C 140 MG/DL; POTASSIUM SERUM 4.4 MEQ/L (3.5-5.1); SODIUM LEVEL 142 MEQ/L (136-145); TRIGLYCERIDES LEVEL 117 MG/DL (<150)
== END ==
LOC: M LAB 08:48
PROVIDERS: ATTEND Physician Assistant Medical
DX: E78.2 Mixed hyperlipidemia (principal); J12.81 Pneumonia due to SARS-associated coronavirus

== ENCOUNTER → 2020-02-23 | Outpatient (CLI) | payer OTHER ==
[2020-02-25 00:07] LABS: PSA TOTAL 2.2 ng/mL (0.0-4.0)
== END ==
LOC: M LAB 08:08
PROVIDERS: ATTEND Urology
DX: N42.32 Atypical small acinar proliferation of prostate (principal)

== ENCOUNTER 2020-10-05 13:36 | Emergency (ER) | payer OTHER ==
[~2020-10-05] VITALS: Ht 180.3 cm; Wt 103.5 kg
--- NOTE | 2020-10-05 15:37 | REP ---
INDICATION: headache COMPARISON: 12/28/2009 TECHNIQUE: Axial noncontrast images from the skull base to the vertex with coronal reformations. This CT examination was performed using the following dose reduction techniques: Automated exposure control, adjustment of mA and/or kv according to the patient's size, and use of iterative reconstruction technique. FINDINGS: The ventricles, sulci, and cisterns are normal in position and appearance. Diaz-white differentiation is maintained. No acute intracranial hemorrhage, mass/mass effect, pathology or trauma/injury. No evidence for acute infarction. No extra-axial fluid collection. Calvarium is intact. Paranasal sinuses and mastoid air cells are clear. IMPRESSION: Normal noncontrast head CT. No evidence for acute intracranial pathology or trauma/injury. <Electronically signed by Wilfredo Bradley > 10/05/20 [id number]
[2020-10-05] MEDS ORDERED: diphenhydrAMINE 50MG/ML VIAL (J1200) IV STA (15:42)
[2020-10-05] MEDS ORDERED: NS 1,000 ML IV ONE (15:45)
[2020-10-05] MEDS ORDERED: KETOROLAC 30 MG/ML 1ML VIAL IV ONE (15:45)
[2020-10-05] MEDS ORDERED: METOCLOPRAMIDE INJ 10MG/2ML VIAL (J2765 PER 1) IV ONE (15:45)
[2020-10-05 18:00] VITALS: BP 151/79
== END 2020-10-05 18:20 | disposition home or self-care (01) ==
LOC: M ED 13:36
DX: S06.0X1A Concussion with loss of consciousness of 30 minutes or less, initial encounter (principal); W22.01XA Walked into wall, initial encounter; Y92.9 Unspecified place or not applicable; Y93.9 Activity, unspecified; Y99.9 Unspecified external cause status; Z86.16 Personal history of COVID-19; G43.909 Migraine, unspecified, not intractable, without status migrainosus; Z91.048 Other nonmedicinal substance allergy status; Z79.899 Other long term (current) drug therapy
CPT/HCPCS: 70450; 96361; 96374; 96375; 99284; J1200; J1885; J2765

== ENCOUNTER → 2021-05-29 | Outpatient (CLI) | payer OTHER ==
[~2021-05-29] MED LIST changes: +LOSA100T45 PO; -LOSA100T50 PO
[2021-05-29 09:10] LABS: ALBUMIN 3.8 GM/DL (3.2-5.2); ALT/SGPT 70 U/L (12-78); BILIRUBIN,TOTAL 0.5 MG/DL (0.2-1.0); BLOOD UREA NITROGEN 16 MG/DL (7-18); CALCIUM LEVEL 9.6 MG/DL (8.5-10.1); CARBON DIOXIDE LEVEL 28 MEQ/L (21-32); CHLORIDE LEVEL 108 MEQ/L (98-107); CHOLESTEROL LEVEL 178 MG/DL (<200); CREATININE FOR GFR 1.08 MG/DL (0.70-1.30); GLOMERULAR FILTRATION RATE > 60.0 (>56); GLUCOSE, FASTING 106 MG/DL (70-100); HDL CHOLESTEROL 37 MG/DL (>40); LDL CHOLESTEROL 88 MG/DL (<100); NON-HDL-C 141 MG/DL; POTASSIUM SERUM 4.4 MEQ/L (3.5-5.1); SODIUM LEVEL 141 MEQ/L (136-145); TOTAL PROTEIN 6.9 GM/DL (6.4-8.2); TRIGLYCERIDES LEVEL 263 MG/DL (<150)
== END ==
LOC: M LAB 08:01
PROVIDERS: ATTEND Nurse Practitioner Family
DX: E78.2 Mixed hyperlipidemia (principal); I10 Essential (primary) hypertension

== ENCOUNTER → 2022-03-27 | Outpatient (CLI) | payer OTHER ==
[~2022-03-27] MED LIST changes: +FISH10005 PO; -FISH7.5C PO
== END ==
LOC: M WUC 09:55
PROVIDERS: ATTEND Registered Nurse
DX: R05.1 Acute cough (principal)

== ENCOUNTER → 2022-04-29 | Outpatient (CLI) | payer OTHER | LOC: M WUC 09:57 | PROVIDERS: ATTEND Urology | DX: R97.20 Elevated prostate specific antigen [PSA] (principal) ==

== ENCOUNTER → 2022-05-20 | Outpatient (CLI) | payer OTHER ==
[2022-05-20 16:44] LABS: ALBUMIN 4.1 G/DL (3.2-5.2); ALKALINE PHOSPHATASE 93 U/L (46-116); ALT/SGPT 69 U/L (7.0-40); AST/SGOT 40 U/L (<34); BILIRUBIN,TOTAL 0.6 MG/DL (0.3-1.2); BLOOD UREA NITROGEN 16 MG/DL (9-23); CALCIUM LEVEL 9.5 MG/DL (8.5-10.1); CARBON DIOXIDE LEVEL 31 MMOL/L (20-31); CHLORIDE LEVEL 105 MMOL/L (98-107); CHOLESTEROL LEVEL 165 MG/DL (<200); CHOLESTEROL RISK RATIO 3.89 (<5); CREATININE FOR GFR 1.02 MG/DL (0.70-1.30); GLOMERULAR FILTRATION RATE > 60.0 (>56); GLUCOSE, FASTING 93 MG/DL (60-100); HDL CHOLESTEROL 42.4 MG/DL (>40); LDL CHOLESTEROL 88.2 MG/DL (<100); NON-HDL-C 122.6 MG/DL; POTASSIUM SERUM 4.5 MMOL/L (3.5-5.1); SODIUM LEVEL 139 MMOL/L (136-145); TOTAL PROTEIN 6.9 G/DL (5.7-8.2); TRIGLYCERIDES LEVEL 172 MG/DL (<150)
== END ==
LOC: M WUC 11:31
PROVIDERS: ATTEND Nurse Practitioner Family
DX: I10 Essential (primary) hypertension (principal); E78.2 Mixed hyperlipidemia

== ENCOUNTER → 2022-07-29 | Outpatient (CLI) | payer OTHER ==
[~2022-07-29] MED LIST changes: -LOSA100T45 PO; +LOSA100T46 PO
== END ==
LOC: M CARPUL 07:42
PROVIDERS: ATTEND Nurse Practitioner Adult Health
DX: R06.02 Shortness of breath (principal)

== ENCOUNTER → 2022-11-28 | Outpatient (CLI) | payer OTHER | LOC: M SOG 13:06 | PROVIDERS: ATTEND Physician Assistant | DX: M25.521 Pain in right elbow (principal) ==

== ENCOUNTER → 2023-02-16 | Outpatient (CLI) | payer OTHER | LOC: M LAB 07:36 | PROVIDERS: ATTEND Urology | DX: N42.32 Atypical small acinar proliferation of prostate (principal) ==

== ENCOUNTER → 2023-10-28 | Outpatient (CLI) | payer OTHER ==
[~2023-10-28] MED LIST changes: +ROSU5TAB40 PO; -ROSU5TAB5 PO
== END ==
LOC: M LAB 15:16
PROVIDERS: ATTEND Urology
DX: N42.32 Atypical small acinar proliferation of prostate (principal)

== ENCOUNTER → 2024-01-05 | Outpatient (CLI) | payer OTHER ==
[~2024-01-05] MED LIST changes: -AZEL0.1S NARES; +AZEL137S8 NARES; -ROSU5TAB40 PO; +ROSU5TAB49 PO
[2024-01-05 16:58] LABS: BASO # 0.1 10^3/uL (0.0-0.2); BASO % 0.6 % (0.0-1.0); EOS # 0.1 10^3/uL (0.0-0.5); HEMATOCRIT 47.7 % (42.0-52.0); LYMPH # 2.4 10^3/uL (1.5-5.0); LYMPH % 22.3 % (24.0-44.0); MEAN CORPUSCULAR HEMOGLOBIN 30.5 pg (27.0-33.0); MEAN CORPUSCULAR HGB CONC 33.5 g/dl (32.0-36.5); MONO # 0.6 10^3/uL (0.0-0.8); MONO % 5.4 % (2.0-8.0); NEUTROPHILS # 7.5 10^3/uL (1.5-8.5); NEUTROPHILS % 70.2 % (36.0-66.0); PLATELET COUNT, AUTOMATED 274 10^3/uL (150-450); RED BLOOD COUNT 5.24 10^6/uL (4.30-6.10); WHITE BLOOD COUNT 10.7 10^3/uL (4.0-10.0)
[2024-01-05 17:24] LABS: HEMOGLOBIN A1c 5.2 % (4.0-6.0)
[2024-01-05 17:33] LABS: ALBUMIN 4.3 G/DL (3.2-5.2); ALKALINE PHOSPHATASE 106 U/L (40-129); ALT/SGPT 88 U/L (7.0-40); AST/SGOT 47 U/L (<34); BILIRUBIN,TOTAL 0.5 MG/DL (0.3-1.2); BLOOD UREA NITROGEN 15 MG/DL (9-23); CALCIUM LEVEL 9.9 MG/DL (8.5-10.1); CARBON DIOXIDE LEVEL 28 MMOL/L (20-31); CHLORIDE LEVEL 108 MMOL/L (98-107); CHOLESTEROL LEVEL 192 MG/DL (<200); CHOLESTEROL RISK RATIO 3.85 (<5); CREATININE FOR GFR 0.94 MG/DL (0.70-1.30); GLOMERULAR FILTRATION RATE > 60.0 (>56); GLUCOSE, FASTING 111 MG/DL (60-100); HDL CHOLESTEROL 49.8 MG/DL (>40); LDL CHOLESTEROL 108.2 MG/DL (<100); NON-HDL-C 142.2 MG/DL; SODIUM LEVEL 142 MMOL/L (136-145); TOTAL PROTEIN 7.3 G/DL (5.7-8.2); TRIGLYCERIDES LEVEL 170 MG/DL (<150)
== END ==
LOC: M WUC 11:37
PROVIDERS: ATTEND Registered Nurse
DX: Z00.01 Encounter for general adult medical examination with abnormal findings (principal); E78.2 Mixed hyperlipidemia; I10 Essential (primary) hypertension

== ENCOUNTER → 2024-04-11 | Outpatient (CLI) | payer OTHER | LOC: M RAD 06:16 | PROVIDERS: ATTEND Registered Nurse | DX: K76.89 Other specified diseases of liver (principal) ==

== ENCOUNTER → 2024-04-13 | Outpatient (CLI) | payer OTHER | LOC: M SOG 07:47 | PROVIDERS: ATTEND Physician Assistant | DX: M19.041 Primary osteoarthritis, right hand (principal); M19.042 Primary osteoarthritis, left hand ==

== ENCOUNTER → 2024-08-22 | Outpatient (CLI) | payer OTHER | LOC: M WUC 12:46 | PROVIDERS: ATTEND Urology | DX: Z12.5 Encounter for screening for malignant neoplasm of prostate (principal) ==

== ENCOUNTER → 2024-08-23 | Outpatient (CLI) | payer OTHER | LOC: M SOG 07:31 | PROVIDERS: ATTEND Physician Assistant | DX: M25.551 Pain in right hip (principal); M16.11 Unilateral primary osteoarthritis, right hip ==

== ENCOUNTER → 2024-10-03 | Outpatient (CLI) | payer OTHER ==
[~2024-10-03] MED LIST changes: -ACE65ERTAB PO; +ACET-1593 PO; +ISOVUE-300 61% 100 ML VIAL As Ordered ONE; +LIDOCAINE 1% MDV 20 ML VIAL As Ordered ONE; +methylPREDNISolone SUSP 40 MG/ML 1 ML VIAL As Ordered ONE
== END ==
LOC: M RAD 15:05
PROVIDERS: ATTEND Physician Assistant
DX: M16.11 Unilateral primary osteoarthritis, right hip (principal)
CPT/HCPCS: 20610; 77002; J0665; J1010; Q9967

== ENCOUNTER → 2024-12-30 | Outpatient (CLI) | payer OTHER ==
[~2024-12-30] MED LIST changes: -ISOVUE-300 61% 100 ML VIAL As Ordered ONE; -LIDOCAINE 1% MDV 20 ML VIAL As Ordered ONE; -methylPREDNISolone SUSP 40 MG/ML 1 ML VIAL As Ordered ONE
[2024-12-30 16:07] LABS: BASO # 0.1 10^3/uL (0.0-0.2); BASO % 0.8 % (0.0-1.0); EOS # 0.3 10^3/uL (0.0-0.5); EOS % 3.2 % (0.0-3.0); LYMPH # 3.6 10^3/uL (1.5-5.0); LYMPH % 36.4 % (24.0-44.0); MONO # 0.6 10^3/uL (0.0-0.8); MONO % 5.9 % (2.0-8.0); NEUTROPHILS # 5.3 10^3/uL (1.5-8.5); NEUTROPHILS % 53.2 % (36.0-66.0); PLATELET COUNT, AUTOMATED 277 10^3/uL (150-450)
[2024-12-30 16:16] LABS: IRON (FE) 120.0 UG/DL (65-175); PERCENT SATURATION 43.5 % (19.7-50.0)
== END ==
LOC: M WUC 08:06
PROVIDERS: ATTEND Orthopaedic Surgery
DX: Z01.818 Encounter for other preprocedural examination (principal); M25.559 Pain in unspecified hip; M16.11 Unilateral primary osteoarthritis, right hip

== ENCOUNTER → 2025-01-23 | Outpatient (CLI) | payer OTHER ==
[~2025-01-23] MED LIST changes: +ACET-1387 PO; -ACET-1593 PO; -FISH10005 PO; +FISH1CAP38 PO
[2025-01-23 12:11] LABS: ALT/SGPT 52.0 U/L (7.0-40); AST/SGOT 41.0 U/L (<34); CALCIUM LEVEL 9.7 MG/DL (8.5-10.1); CARBON DIOXIDE LEVEL 32.0 MMOL/L (20-31); CHLORIDE LEVEL 99.0 MMOL/L (98-107); CREATININE FOR GFR 1.08 MG/DL (0.70-1.30); GLOMERULAR FILTRATION RATE 80.0 (>56); POTASSIUM SERUM 3.4 MMOL/L (3.5-5.1); SODIUM LEVEL 140.0 MMOL/L (136-145)
[2025-01-23 12:22] LABS: INR 0.91
== END ==
LOC: M WUC 08:14
PROVIDERS: ATTEND Orthopaedic Surgery
DX: M25.559 Pain in unspecified hip (principal)